=== PATIENT | male | born 1995 | race Caucasian/White ===

== ENCOUNTER 2016-08-14 10:59 | Emergency (ER) | payer OTHER ==
--- NOTE | 2016-08-14 13:29 | ER PHYSICIAN DOCUMENTATION ---
Physician Documentation [facility] Name:Yann Medeiros Age:20 yrs Sex:Male :1995 Arrival Date:08/14/2016 Time:10:59 Bed6 Private MD: Yann Gregorio Disposition: 08/14/16 12:48 Discharged to Home/Self Care. Impression: Hand Laceration. - Condition is Fair. - Discharge Instructions: LACERATION, Hand. - Medical Reconciliation form form. - Follow up: Private Physician; When: 2 - 3 days; Reason: Recheck today's complaints, Continuance of care. - Problem is new. - Symptoms have improved. HPI: 08/14 12:40 This 20 yrs old Male presents to ER via Private Vehicle with complaints of sc Laceration To Hand - R. 12:40 The patient has a laceration related to: camping/geology accidental stuck knife in hand sc occurred outdoors, and The type of wound is a puncture. The laceration(s) is(are) located on the lateral aspect of right hand and Right first web space. Onset: The symptom(s)/episode began/occurred just prior to arrival. Associated signs and symptoms: The patient has no apparent associated signs or symptoms. Compartment Syndrome symptoms: negative for numbness, negative for severe pain, negative for tingling. The patient has not experienced similar symptoms in the past. Historical: - Allergies: Bee venom; - Home Meds: 1. None - PMHx: None; - PSHx: None; - Tetanus: < 10 years. - Ebola Screening: : Patient negative for fever greater than or equal to 101.5 degrees Fahrenheit, and additional compatible Ebola Virus Disease symptoms. Patient denies exposure to infectious person. Patient denies travel to an Ebola-affected area in the 21 days before illness onset. . - Immunization history: Flu Vaccine < 1 year. - Social history: Smoking status: Patient states was never smoker of tobacco. ROS: 12:42 Constitutional: Negative for fever, chills, and weight loss. sc Eyes: Negative for injury, pain, redness, and discharge. Neck: Negative for injury, pain, and swelling. Cardiovascular: Negative for chest pain, palpitations, and edema. 12:42 Neuro: Negative for headache, weakness, numbness, tingling, and seizure. sc 12:42 Skin: Positive for laceration(s). Exam: 12:42 Musculoskeletal/extremity: Extremities: grossly normal except: decreased ROM, sc laceration, pain, ROM: limited active range of motion due to pain, limited passive range of motion due to pain, Circulation is intact in all extremities. Sensation intact. Tendon exam: postive for partial tendon laceration Right first web space. Constitutional: This is a well developed, well nourished patient who is awake, alert, and in no acute distress. Head/Face: Normocephalic, atraumatic. Eyes: Pupils equal round and reactive to light, extra-ocular motions intact. Lids and lashes normal. Conjunctiva and sclera are non-icteric and not injected. Cornea within normal limits. Periorbital areas with no swelling, redness, or edema. Neck: Trachea midline, no thyromegaly or masses palpated, and no cervical lymphadenopathy. Supple, full range of motion without nuchal rigidity, or vertebral point tenderness. No meningismus. Chest/axilla: Normal chest wall appearance and motion. Nontender with no deformity. No lesions are appreciated. Respiratory: Lungs have equal breath sounds bilaterally, clear to auscultation and percussion. No rales, rhonchi or wheezes noted. No increased work of breathing, no retractions or nasal flaring. Back: No spinal tenderness. No costovertebral tenderness. Full range of motion. 12:42 Skin: Warm, dry with normal turgor. Normal color with no rashes, no lesions, and no evidence of cellulitis. 12:48 Skin: Exam negative for acute changes. ne Vital Signs: 11:47 BP 118 / 82; Pulse 61; Resp 14; Pulse Ox 97% on R/A; Pain 4/10; tg Laceration: 12:46 Wound Repair of 2cm ( 0.8in ) subcutaneous laceration to Right first web space. Linear sc shaped.. Profuse bleeding noted.. Neuro:Tingling distal to wound. Vascular:Intact distal to wound. Tendon:Impaired function distal to wound. Anesthesia: Local anesthetic administered with 3 mls of 2% lidocaine w/ Epi. Wound prep: Simple cleansing. Skin closed with 5 4-0 Nylon using Interrupted sutures. Dressed with Bacitracin, pressure dressing. Patient tolerated well. MDM: 11:24 Patient medically screened. sc 12:47 Differential diagnosis: superficial laceration, tendon injury, vascular injury. Data sc reviewed: vital signs, nurses notes, and as a result, I will discharge patient. Counseling: I had a detailed discussion with the patient and/or guardian regarding: the historical points, exam findings, and any diagnostic results supporting the discharge/admit diagnosis, the need for outpatient follow up, to return to the emergency department if symptoms worsen or persist or if there are any questions or concerns that arise at home. Dispensed Medications: No medications were administered Signatures: German Juarez, RN RN tg Kelly Jiang RN RN Yann Jung MD MD sc
--- NOTE | 2016-08-14 13:29 | ER NURSING DOCUMENTATION ---
Nurse's Notes [facility] Name:Yann Medeiros Age:20 yrs Sex:Male :1995 Arrival Date:08/14/2016 Time:10:59 Bed6 Private MD: Diagnosis:Hand Laceration Presentation: 08/14 11:04 Acuity: SHANTELL 4 tg 11:47 Presenting complaint: Patient states: Deep lac to right thumb (base). Transition of tg care: patient was not received from another setting of care. Complicating Factors: There are no complicating factors for this patient. 11:47 Method Of Arrival: Private Vehicle tg Triage Assessment: 13:27 General: Appears in no apparent distress, Behavior is appropriate for age. Pain: lp Complains of pain in right hand. Injury Description: Laceration sustained to right hand is bleeding a small amount. Historical: - Allergies: Bee venom; - Home Meds: 1. None - PMHx: None; - PSHx: None; - Tetanus: < 10 years. - Ebola Screening: : Patient negative for fever greater than or equal to 101.5 degrees Fahrenheit, and additional compatible Ebola Virus Disease symptoms. Patient denies exposure to infectious person. Patient denies travel to an Ebola-affected area in the 21 days before illness onset. . - Immunization history: Flu Vaccine < 1 year. - Social history: Smoking status: Patient states was never smoker of tobacco. Screenin:28 Infectious Disease Risk None. Abuse screen: Denies threats or abuse. Denies injuries lp from another. Nutritional screening: No deficits noted. Assessment: 13:28 See Triage Assessment done by same RN. lp 13:28 Musculoskeletal: No deficits noted. Injury Description: Laceration is clean, bleeding lp moderately. Vital Signs: 11:47 BP 118 / 82; Pulse 61; Resp 14; Pulse Ox 97% on R/A; Pain 4/10; tg ED Course: 11:01 Patient arrived in ED. ds 11:04 Triage completed. tg 11:24 Yann James MD is Attending Physician. sc 11:43 German Juarez, LORETTA is Primary Nurse. tg 12:13 Valuables Remains with patient. tg 12:14 Wound care to laceration located on Right first web space was Irrigation Normal Saline tg Patient tolerated well. 13:10 Assist Provider Assist provider with laceration repair on Right first web space that tg was 2.5 cm. or less using sutures. Set up tray. Performed by German Juarez RN Dressed with Kerlix, Neosporin, Xeroform, Patient tolerated well. Sling applied to right arm. 13:27 Notified ED Physician. lp Administered Medications: No medications were administered Outcome: 12:48 Discharge ordered by . syed 13:27 Discharged to home ambulatory. 13:27 Condition: good 13:27 Instructed on discharge instructions, follow up and referral plans. wound care. 13:28 Patient left the ED. lp 08/15 14:08 Discharge F/U Call: Spoke with: patient. mk2 Signatures: German Juarez, RN RN tg Kelly Jiang RN RN joseph Srot, Nneka, Reg Reg Yann Hughes MD MD sc Kruger, Meg, RN RN mk2
== END 2016-08-14 13:29 | disposition home or self-care (01) ==
LOC: ER 10:59
DX: S61.411A Laceration without foreign body of right hand, initial encounter (principal); W26.0XXA Contact with knife, initial encounter; Y92.89 Other specified places as the place of occurrence of the external cause
CPT/HCPCS: 13131; 99283